=== PATIENT | female | born 1960 | race Caucasian/White ===

== ENCOUNTER 2017-01-10 10:56 | Day surgery (SDC) | payer OTHER ==
[2016-12-27 11:37] LABS: HEMATOCRIT 40.3 % (36.0-47.0); HEMOGLOBIN 13.6 g/dL (12.0-15.5); HGB HCT DIFFERENCE 0.5; MEAN CORPUSCULAR HEMOGLOBIN 29.5 pg (27.0-33.4); MEAN CORPUSCULAR HGB CONC 33.7 g/dL (32.0-36.0); MEAN CORPUSCULAR VOLUME 88 fl (80-97); WHITE BLOOD COUNT 5.5 10^3/uL (4.0-10.5)
[2016-12-27 11:42] LABS: PROTHROMBIN TIME 12.4 SEC (11.4-15.4)
[2016-12-27 11:43] LABS: PARTIAL THROMBOPLASTIN TIME 27.1 SEC (23.5-35.8)
--- NOTE | 2016-12-27 19:53 | EKG REPORT ---
SEVERITY:- ABNORMAL ECG - SINUS RHYTHM NONSPECIFIC T ABNORMALITIES, INFERIOR LEADS : Confirmed by: Del Hope 27-Dec-2016 19:52:20
[~2017-01-10 10:56] MED LIST: CEFAZOLIN 1 GM/D5W RTU 1 GM/50 ML RTUPB IV PRN; RINGERS SOLUTION,LACTATED 1,000 ML IV PRN; SODIUM BICARBONATE 8.4% INJ 50 MEQ/50 ML DISP.SYRIN ONE
[2017-01-10] MEDS ORDERED: FENTANYL CITRATE INJ/PF 100 MCG/2 ML AMPUL ONE (12:07)
[2017-01-10] MEDS ORDERED: PROPOFOL INJ 200 MG/20 ML VIAL IV ONE (12:08)
[2017-01-10] MEDS ORDERED: MIDAZOLAM 2 MG/2 ML INJ ONE (12:08)
[2017-01-10] MEDS ORDERED: LIDOCAINE 0.5%/EPINEPHRINE INJ 50 ML VIAL ONE (12:11)
[2017-01-10] MEDS ORDERED: ONDANSETRON HCL INJ/PF 4 MG/2 ML SDV IV PRN (12:59)
[2017-01-10] MEDS ORDERED: MORPHINE SULFATE 10 MG/ML INJ IV PRN (12:59)
[2017-01-10] MEDS ORDERED: FENTANYL CITRATE INJ/PF 100 MCG/2 ML AMPUL IV PRN ×3 (12:59)
[2017-01-10] MEDS ORDERED: DIPHENHYDRAMINE HCL 50 MG/ML VIAL IV PRN (12:59)
--- NOTE | 2017-01-10 13:44 | Operative Report ---
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 Patient was brought into the operating room and placed on the operating room table in a supine position. Patient was then prepped with a Betadine scrub and Betadine solution and draped in a sterile and aseptic manner. The area was then marked. 12 O'clock was marked towards the antecubital fossa 3 O'clock was marked towards the ulnar side 6:00 was marked towards the wrist 9:00 was marked towards the radial side The area was then anesthetized with half percent lidocaine with epinephrine for its anesthetic and hemostatic effects. The area was then excised and marked at 12:00. The specimen was sent for frozen section which came back deep and lateral margins are clear. We had considered a primary closure but this would go against the natural relaxed skin tension lines. A primary closure would be too tight and would have increased chance of dehiscence. This will leave more of a scar so we decided to use a O to S flap reconstruction which would camouflage the scar better and take tension off of the closure so that would be less chances of complications. Then went ahead and outlined the flap and anesthetized it. Then incised the flap and developed a flap maintaining the subdermal plexus. Then we undermined 360 to allow for plate like scarring and minimize trap door deformity. Throughout the case hemostasis was achieved with the bipolar. We then sutured the flap into its new position Using 4-0 Vicryl for the subcutaneous and deep dermis. Skin was closed with a running subcuticular stitch using 4-0 PDS with knots being tied on the outside. And 4-0 PDS suture was used for support and placed in the central area of the incision. We then applied tincture benzoin and Steri-Strips followed by a light pressure dressing. Patient was then reversed from anesthesia and taken to the [facility] for recovery. The patient tolerated well. There were no complications. Lesion size was approximately 1.5 x 1 cm please see pathology for actual size. Portions of this note may be dictated using Dragon voice recognition software. Occasional variations and spelling and vocabulary could be possible and are unintentional. Additionally, there is a chance that some errors may not be caught or corrected. Please notify the offer of any discrepancies noted or if any statements are unclear. Subjective: No complaints Objective: Vital signs stable afebrile No bleeding Dressing intact Assessment and plan: Doing well. Elevate the operative site. Resume medications. Take antibiotics for 1 day Follow-up Full instructions were given to the patient and family and they understand Portions of this note may be dictated using [employer] voice recognition software. Occasional variations and spelling and vocabulary could be possible and are unintentional. Additionally, there is a chance that some errors may not be caught or corrected. Please notify the offer of any discrepancies noted or if any statements are unclear.
--- NOTE | 2017-01-10 13:46 | PDOC DISCHARGE SUMMARY ---
Discharge Summary (SDC) - Discharge Final Diagnosis: Squamous cell carcinoma of the right radial forearm distal Date of Surgery: 01/10/17 Condition: Good Treatment or Instructions: Leave the top dressing on for 2 days, then removed. Leave the steri-strip tapes on for 5 days, then removal. Then cleaning wound with peroxide and apply Neosporin/bacitracin 3 times per day. Antibiotics for 1 day, then discontinue. Elevate operative area to decrease swelling. Do not strain, or lift heavy objects. Call for excessive bleeding, increased temperature of 101, uncontrolled pain, or excessive nausea or vomiting. You may reach Dr. Bansal through his office at [phone]. In the event of an emergency after hours, then contact Dr. Bansal through [facility]. Return to the office for a postop check on . The time will be scheduled by the nursing staff of [facility] prior to discharge. Please give the patient a copy of their labs and EKG so they can bring this to their PMD. Thank you Portions of this note may be dictated using [employer] voice recognition software. Occasional variations and spelling and vocabulary could be possible and are unintentional. Additionally, there is a chance that some errors may not be caught or corrected. Please notify the offer of any discrepancies noted or if any statements are unclear. Discharge Diet: As Tolerated Discharge Activity: Activity As Tolerated - Keep arm elevated. Report the Following to Your Physician Immediately: Unusual Bleeding - Keep arm elevated
[2017-01-10] MEDS ORDERED: ONDANSETRON HCL INJ/PF 4 MG/2 ML SDV ONE (14:13)
[2017-01-10 15:23] VITALS: BP 128/77
== END 2017-01-10 15:05 | disposition home or self-care (01) ==
LOC: OROUT 10:56
PROVIDERS: ATTEND Plastic Surgery
PROC: 0HBDXZZ Excision of Right Lower Arm Skin, External Approach (ICD-10-PCS; 2017-01-10)
PROC: 0HXDXZZ Transfer Right Lower Arm Skin, External Approach (ICD-10-PCS; principal; 2017-01-10 13:00)
DX: C44.622 Squamous cell carcinoma of skin of right upper limb, including shoulder (principal); L57.0 Actinic keratosis; Z85.828 Personal history of other malignant neoplasm of skin; R01.1 Cardiac murmur, unspecified
CPT/HCPCS: 93005; 36415; 85027; 85610; 85730; 88305 ×2; 88331 ×2; 93010; 14020; J2250; J0690; J3010; J3490; J2405; J2704; 400

== ENCOUNTER 2017-11-21 10:25 | Day surgery (SDC) | payer OTHER ==
[2017-11-07 10:34] LABS: HEMATOCRIT 40.8 % (36.0-47.0); HEMOGLOBIN 13.8 g/dL (12.0-15.5); MEAN CORPUSCULAR HEMOGLOBIN 29.6 pg (27.0-33.4); MEAN CORPUSCULAR HGB CONC 33.9 g/dL (32.0-36.0); MEAN CORPUSCULAR VOLUME 87 fl (80-97); PLATELET COUNT 254 10^3/uL (150-450); RED BLOOD COUNT 4.67 10^6/uL (3.72-5.28); RED CELL DISTRIBUTION WIDTH 13.2 % (11.5-14.0); WHITE BLOOD COUNT 5.5 10^3/uL (4.0-10.5)
[2017-11-07 10:44] LABS: INTERNATIONAL RATION (INR) 0.86; PROTHROMBIN TIME 12.2 SEC (11.4-15.4)
[2017-11-07 10:47] LABS: PARTIAL THROMBOPLASTIN TIME 28.8 SEC (23.5-35.8)
--- NOTE | 2017-11-07 23:43 | EKG REPORT ---
SEVERITY:- NORMAL ECG - SINUS RHYTHM : Confirmed by: Del Hope 07-Nov-2017 23:41:29
[~2017-11-21 10:25] MED LIST changes: +LACTATED RINGERS 1000 ML IV PRN; +LIDOCAINE 1%/EPINEPHRINE INJ 20 ML VIAL ONE; +POVIDONE-IODINE 5% OPH PREP SOLN 30 ML ONE; -RINGERS SOLUTION,LACTATED 1,000 ML IV PRN
[2017-11-21] MEDS ORDERED: PROPOFOL INJ 200 MG/20 ML VIAL IV ONE (12:03)
[2017-11-21] MEDS ORDERED: DEXMEDETOMIDINE INJ 80 MCG/20 ML VIAL IV ONE (12:03)
[2017-11-21] MEDS ORDERED: MIDAZOLAM 2 MG/2 ML INJ ONE (12:03)
[2017-11-21] MEDS ORDERED: FENTANYL CITRATE INJ/PF 100 MCG/2 ML AMPUL IV PRN ×2 (12:44)
[2017-11-21] MEDS ORDERED: PROMETHAZINE HCL INJ 25 MG/1 ML VIAL IV PRN (12:44)
[2017-11-21] MEDS ORDERED: DIPHENHYDRAMINE HCL 50 MG/ML VIAL IV PRN (12:44)
[2017-11-21] MEDS ORDERED: MEPERIDINE HCL/PF INJ 25 MG/1 ML DISP.SYRIN IV PRN (12:44)
--- NOTE | 2017-11-21 13:42 | Operative Report ---
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 Patient was brought into the operating room and placed on the operating room table in a supine position. Patient was then prepped with a Betadine scrub and Betadine solution and draped in a sterile and aseptic manner. The area was then marked. 12 O'clock was marked towards the nasolabial fold 3 O'clock was marked towards the lip 6:00 was marked towards along the marionette line 9:00 was marked towards the right cheek The area was then anesthetized with 1% lidocaine with epinephrine and bicarbonate for its anesthetic and hemostatic effects. The area was then excised and marked at 12:00. The specimen was sent for frozen section. The results came back that the deep and lateral margins were free. We had considered a primary closure but this would go against the natural relaxed skin tension lines. A primary closure would be too tight and would have increased chance of dehiscence. This will leave more of a scar so we decided to use a cheek sliding advancement flap reconstruction which would camouflage the scar better and take tension off of the closure so that would be less chances of complications. Using the cheek sliding advancement flap this would allow us to raise the flap and a facelift plane maintaining a subdermal plexus. This will allow us to harvest the extra skin so that we can have a tension-free closure and have the least amount of distortion of the oral commissure. The resection was just abutting the very tip of the vermilion of the oral commissure. Any type of full would cause lengthening of the lip. Therefore a vigorous undermining and sliding cheek advancement flap without tension would do the best in order to maintain symmetry from the left and the right oral commissure. Then we went ahead and outlined the flap and anesthetized it. We then incised the flap and developed a flap maintaining the subdermal plexus. Then we undermined 360 to allow for plate like scarring and minimize trap door deformity. Throughout the case hemostasis was achieved with the bipolar. We then sutured the flap into its new position using 5-0 Vicryl for the subcutaneous and deep dermis. Skin was closed with a running subcuticular suture stitch using 4-0 PDS with knots being tied on the outside. And 4-0 PDS suture was used for support and placed in the central area of the incision. We then applied tincture benzoin and Steri-Strips followed by a light pressure dressing. Patient was then reversed from anesthesia and taken to the [facility] for recovery. The patient tolerated well. There were no complications. Lesion size was approximately 1.5 x 1.1 cm please see pathology for actual size. Portions of this note may be dictated using [employer] voice recognition software. Occasional variations and spelling and vocabulary could be possible and are unintentional. Additionally, there is a chance that some errors may not be caught or corrected. Please notify the author of any discrepancies noted or if any statements are unclear. Subjective: No complaints Objective: Vital signs stable afebrile No bleeding Dressing intact Assessment and plan: Doing well. Elevate the operative site. Resume medications. Take antibiotics for 1 day Follow-up Full instructions were given to the patient and family and they understand Portions of this note may be dictated using [employer] voice recognition software. Occasional variations and spelling and vocabulary could be possible and are unintentional. Additionally, there is a chance that some errors may not be caught or corrected. Please notify the offer of any discrepancies noted or if any statements are unclear.
--- NOTE | 2017-11-21 13:44 | Discharge Summary ---
Discharge Summary (SDC) - Discharge Final Diagnosis: Basal cell carcinoma of the right oral commissure Date of Surgery: 11/21/17 Condition: Good Treatment or Instructions: Leave the top dressing on for 2 days, then removed. Leave the steri-strip tapes on for 5 days, then removal. Then cleaning wound with peroxide and apply Neosporin/bacitracin 3 times per day. Antibiotics for 1 day, then discontinue. Elevate operative area to decrease swelling. Do not strain, or lift heavy objects. Call for excessive bleeding, increased temperature of 101, uncontrolled pain, or excessive nausea or vomiting. You may reach Dr. Bansal through his office at [phone]. In the event of an emergency after hours, then contact Dr. Bansal through [facility]. Return to the office for a postop check on . The time will be scheduled by the nursing staff of [facility] prior to discharge. Please give the patient a copy of their labs and EKG so they can bring this to their PMD. Thank you Portions of this note may be dictated using [employer] voice recognition software. Occasional variations and spelling and vocabulary could be possible and are unintentional. Additionally, there is a chance that some errors may not be caught or corrected. Please notify the offer of any discrepancies noted or if any statements are unclear. Referrals: ROSALINDA FISHER CNM [Primary Care Provider] - Discharge Diet: As Tolerated Report the Following to Your Physician Immediately: Unusual Bleeding - Keep head elevated. Do not open the mouth wide. Eat soft food for the next several days. Cut food up into very small pieces. Minimize chewing.
[2017-11-21 16:05] VITALS: BP 110/59
== END 2017-11-21 15:40 | disposition home or self-care (01) ==
LOC: OROUT 10:25
PROVIDERS: ATTEND Plastic Surgery
DX: C44 Other and unspecified malignant neoplasm of skin (principal); R01.1 Cardiac murmur, unspecified; G47.30 Sleep apnea, unspecified; L57.0 Actinic keratosis; L57.8 Other skin changes due to chronic exposure to nonionizing radiation; Z79.899 Other long term (current) drug therapy; Z79.1 Long term (current) use of non-steroidal anti-inflammatories (NSAID); Z79.891 Long term (current) use of opiate analgesic
CPT/HCPCS: 14060; 93005; 36415; 85027; 85610; 85730; 88305 ×2; 88331 ×2; 93010; J2250; J0690; J3490 ×4; J2704; 300

== ENCOUNTER 2017-12-26 06:00 | Day surgery (SDC) | payer OTHER ==
[~2017-12-26 06:00] MED LIST changes: -LACTATED RINGERS 1000 ML IV PRN; -LIDOCAINE 1%/EPINEPHRINE INJ 20 ML VIAL ONE; -POVIDONE-IODINE 5% OPH PREP SOLN 30 ML ONE; -SODIUM BICARBONATE 8.4% INJ 50 MEQ/50 ML DISP.SYRIN ONE
[2017-12-26] MEDS ORDERED: POVIDONE-IODINE 5% OPH PREP SOLN 30 ML ONE (06:06)
[2017-12-26] MEDS ORDERED: SODIUM BICARBONATE 8.4% INJ 50 MEQ/50 ML DISP.SYRIN ONE (06:06)
[2017-12-26] MEDS ORDERED: MIDAZOLAM 2 MG/2 ML INJ ONE (07:55)
[2017-12-26] MEDS ORDERED: KETAMINE HCL INJ 500 MG/10 ML VIAL ONE (07:55)
[2017-12-26] MEDS ORDERED: PROPOFOL INJ 200 MG/20 ML VIAL IV ONE (07:56)
[2017-12-26] MEDS: LIDOCAINE 1%/EPINEPHRINE INJ 20 ML VIAL ONE ×2 (08:38→09:00)
[2017-12-26] MEDS ORDERED: MEPERIDINE HCL/PF INJ 25 MG/1 ML DISP.SYRIN IV PRN (09:29)
[2017-12-26] MEDS ORDERED: FENTANYL CITRATE INJ/PF 100 MCG/2 ML AMPUL IV PRN ×3 (09:29)
[2017-12-26] MEDS ORDERED: OXYCODONE-ACETAMINOPHEN 5-325 MG TABLET PO PRN ×2 (09:29)
[2017-12-26] MEDS ORDERED: PROMETHAZINE HCL INJ 25 MG/1 ML VIAL IV PRN ×2 (09:29)
[2017-12-26] MEDS ORDERED: DIPHENHYDRAMINE HCL 50 MG/ML VIAL IV PRN (09:29)
--- NOTE | 2017-12-26 10:24 | Operative Report ---
Operative Report DATE OF SURGERY: 12/26/17 PREOPERATIVE DIAGNOSIS: Right antihelix groove basal squamous carcinoma POSTOPERATIVE DIAGNOSIS: Same OPERATION: Excision of basal squamous carcinoma from the right anti-helical groove with frozen section margin control and reconstruction with a split- thickness skin graft taken from the right clavicular area SURGEON: NIKKY BRUNO ANESTHESIA: LMAC TISSUE REMOVED OR ALTERED: Basal squamous cell carcinoma COMPLICATIONS: None ESTIMATED BLOOD LOSS: Minimal PROCEDURE: The patient was brought into the operating room. The patient was laid on the operating room table in a supine position. The patient was prepped and draped in a sterile and aseptic fashion. After a timeout we then went ahead and marked the area right and thigh helical groove to be resected. The 12:00 margin the apex of the ear. The 3:00 margin was towards the tragus. The 6:00 margin was towards the earlobe. The 9:00 margin was towards the posterior ear. Then went ahead and anesthetize the area with 1% lidocaine with epinephrine. Then went ahead and excise the area. Stitch was placed at 12:00 and it was sent for frozen section. Frozen section results came back that the deep and lateral margins were clear. We irrigated the wound with Betadine sterile water to lyse any remaining cancer cells. We then went ahead and decided that because of the size of the defect we will proceed with a skin graft. Decided to harvest the graft from the right clavicular area. We then went ahead and harvest the split-thickness graft. We closed the area with 4-0 Vicryl sutures and the skin was then closed with 4- 0 PDS with knots being tied on the outside and a support stitch in the center. At the end of the case tincture of benzoin and Steri-Strips were applied with a light pressure dressing. Graft was then defatted to the appropriate size and placed into the area of defect. Because the patient only needed a very thin graft we decided to then the graft to make it a split-thickness skin graft. This will allow it to contour from the helix to the anti-helical groove to the anti-helix and try to maintain the natural contour the area. By sending the graft this hopefully will allow us to achieve that goal. Leaving it as a full-thickness graft would have been too thick and we would have lost contour and it would not have the aesthetic effect needed in that area. It was then sutured into place with 5-0 Prolene sutures leaving one end long. After all the sutures were placed we then went ahead and applied Xeroform. Then went ahead and created a bolus dressing and tied each suture 180 from each other. Then tied the sutures again to each other. Bacitracin was applied. 2 x 2's were applied and tincture benzoin and the dressing was taped into place. At the end of the case the patient was doing well and brought to the [facility] for recovery The approximate size of the lesion was 1.1 x 1.0 cm. This dictation was performed using [employer] naturally speaking. If there are any inconsistencies please contact the dictating surgeon. Subjective: No complaints Objective: Vital signs stable afebrile No bleeding Dressing intact Assessment and plan: Doing well. Elevate the operative site. Resume medications. Take antibiotics for 1 day Follow-up Full instructions were given to the patient and family and they understand Portions of this note may be dictated using [employer] voice recognition software. Occasional variations and spelling and vocabulary could be possible and are unintentional. Additionally, there is a chance that some errors may not be caught or corrected. Please notify the offer of any discrepancies noted or if any statements are unclear.
--- NOTE | 2017-12-26 10:26 | Discharge Summary ---
Discharge Summary (SDC) - Discharge Final Diagnosis: Right and helical groove basal squamous cell carcinoma Date of Surgery: 12/26/17 Condition: Good Treatment or Instructions: Antibiotics for 1 day, then discontinue. Elevate operative area to decrease swelling. Do not strain, or lift heavy objects. Call for excessive bleeding, increased temperature of 101, uncontrolled pain, or excessive nausea or vomiting. You may reach Dr. Bansal through his office at [phone]. In the event of an emergency after hours, then contact Dr. Bansal through [facility]. Return to the office for a postop check on . The time will be scheduled by the nursing staff of [facility] prior to discharge. Please give the patient a copy of their labs and EKG so they can bring this to their PMD. Thank you Portions of this note may be dictated using [employer] voice recognition software. Occasional variations and spelling and vocabulary could be possible and are unintentional. Additionally, there is a chance that some errors may not be caught or corrected. Please notify the offer of any discrepancies noted or if any statements are unclear. Referrals: ROSALINDA FISHER CNM [Primary Care Provider] - Discharge Diet: As Tolerated Report the Following to Your Physician Immediately: Unusual Bleeding - Keep head elevated. No bending or straining.
[2017-12-26 12:25] VITALS: BP 123/78
== END 2017-12-26 11:40 | disposition home or self-care (01) ==
LOC: OROUT 06:00
PROVIDERS: ATTEND Plastic Surgery
DX: C44.229 Squamous cell carcinoma of skin of left ear and external auricular canal (principal); C44.219 Basal cell carcinoma of skin of left ear and external auricular canal; R01.1 Cardiac murmur, unspecified; G47.33 Obstructive sleep apnea (adult) (pediatric); E66.9 Obesity, unspecified; Z79.899 Other long term (current) drug therapy; Z79.891 Long term (current) use of opiate analgesic; Z85.828 Personal history of other malignant neoplasm of skin; Z68.34 Body mass index [BMI] 34.0-34.9, adult
CPT/HCPCS: 88305 ×2; 88331 ×2; 11642; 15120; J2250; J0690; J3490 ×4; J2704; 300